=== PATIENT | female | born 1980 | race Caucasian/White ===

== ENCOUNTER 2016-08-18 | Outpatient (CLI) | payer OTHER | END 2016-08-18 12:30 | disposition home or self-care (01) ==

== ENCOUNTER 2016-08-21 08:34 | Inpatient (IN) | payer OTHER ==
[~2016-08-21 08:34] MED LIST: DEXTROSE 5% 1,000 ML IV PRN; DEXTROSE 50% ABBOJECT 25 GM/50 ML SYRINGE IVP PRN; DEXTROSE GEL 37.5 GM TUBE PO PRN; GLUCAGON 1 MG/ML VIAL SUBQ PRN; ONDANSETRON 4 MG/2 ML VIAL IVP PRN; PENICILLIN G POTASSIUM 5,000,000 UNIT in SODIUM CHLORIDE 0.9% MINIBAG 100 ML IV ONE; SODIUM CHLORIDE FLUSH 0.9% 10 ML SYRINGE IVP PRN; SODIUM CHLORIDE FLUSH 0.9% 10 ML SYRINGE IVP SCH; miSOPROStol 100 MCG TABLET VG SCH
[2016-08-21] MEDS: LABETALOL 100 MG TABLET PO SCH ×2 (08:49→20:19)
[2016-08-21] MEDS ORDERED: OXYTOCIN/LACTATED RINGERS 250 ML IV SCH ×2 (09:00→21:54)
[2016-08-21] MEDS: LACTATED RINGERS 1,000 ML IV SCH ×2 (09:25→19:35)
[2016-08-21] MEDS ORDERED: fentaNYL 100 MCG/2 ML VIAL IVP PRN (10:00)
[2016-08-21] MEDS: PENICILLIN G POTASSIUM 2,500,000 UNIT in SODIUM CHLORIDE 0.9% 100ML 100 ML IV SCH ×3 (13:46→21:25)
[2016-08-21] MEDS: CALCIUM CARBONATE CHEW 500 MG TABLET PO SCH ×3 (15:01→23:25)
[2016-08-21] MEDS ORDERED: miSOPROStol 200 MCG TABLET ONE (15:41)
[2016-08-21] MEDS ORDERED: IMMUNE GLOBULIN IV ONE (16:00)
[2016-08-21] MEDS ORDERED: LABETALOL 100 MG TABLET PO SCH ×2 (21:55→22:11)
[2016-08-22] MEDS ORDERED: LABETALOL 20 MG/4 ML SYRINGE IVP SCH (01:27)
[2016-08-22] MEDS: PENICILLIN G POTASSIUM 2,500,000 UNIT in SODIUM CHLORIDE 0.9% 100ML 100 ML IV SCH ×2 (01:48→05:33)
[2016-08-22] MEDS ORDERED: MORPHINE 10 MG/ML VIAL IM SCH (02:48)
[2016-08-22] MEDS ORDERED: LABETALOL 20 MG/4 ML SYRINGE IVP PRN (02:49)
[2016-08-22] MEDS ORDERED: PROMETHAZINE 25 MG TABLET PO SCH (03:00)
[2016-08-22] MEDS: LACTATED RINGERS 1,000 ML IV SCH (08:17)
[2016-08-22] MEDS ORDERED: LABETALOL 100 MG TABLET PO SCH (09:00)
[2016-08-22] MEDS ORDERED: AMPICILLIN 2 GM in SODIUM CHLORIDE 0.9% MINIBAG 100 ML IV SCH (12:00)
== END 2016-08-22 14:10 | disposition short-term general hospital (02) | DRG 781 ==
PROC: 3E033VJ Introduction of Other Hormone into Peripheral Vein, Percutaneous Approach (ICD-10-PCS; principal; 2016-08-21)
PROC: 10907ZC Drainage of Amniotic Fluid, Therapeutic from Products of Conception, Via Natural or Artificial Opening (ICD-10-PCS; principal; 2016-08-21)
DX: O24.415 Gestational diabetes mellitus in pregnancy, controlled by oral hypoglycemic drugs (principal); O99.113 Other diseases of the blood and blood-forming organs and certain disorders involving the immune mechanism complicating pregnancy, third trimester; D69.3 Immune thrombocytopenic purpura; O13.3 Gestational [pregnancy-induced] hypertension without significant proteinuria, third trimester; O99.820 Streptococcus B carrier state complicating pregnancy; O99.343 Other mental disorders complicating pregnancy, third trimester; F41.0 Panic disorder [episodic paroxysmal anxiety]; Z3A.39 39 weeks gestation of pregnancy

== ENCOUNTER 2017-03-08 18:42 | Outpatient (CLI) | payer OTHER | END 2017-03-08 18:43 | disposition EMS.NT | LOC: EMS 18:42 | PROVIDERS: ATTEND Surgery | DX: R03.0 Elevated blood-pressure reading, without diagnosis of hypertension (principal); F41.9 Anxiety disorder, unspecified ==